=== PATIENT | male | born 1950 | race Caucasian/White ===

== ENCOUNTER 2018-04-19 12:34 | Inpatient (IN) | payer OTHER ==
[~2018-04-19] VITALS: Ht 167.6 cm; Wt 69.0 kg
--- NOTE | 2018-04-19 13:21 | ED GI/GU/ABDOMINAL COMPLAINT ---
History of Present Illness General Chief Complaint: Male Genitourinary Problems Stated Complaint: URINATING BLOOD Source: patient Exam Limitations: no limitations Vital Signs & Intake/Output Vital Signs & Intake/Output Vital Signs Date Time Temp Pulse Resp B/P B/P Pulse O2 O2 Flow FiO2 Mean Ox Delivery Rate 04/19 1708 98.4 94 16 144/79 99 Room Air 04/19 1529 98.2 99 18 169/79 99 Room Air 04/19 1400 109 04/19 1257 97.0 125 20 138/92 98 Room Air Allergies Coded Allergies: tetanus and diphtheria toxoids (SWELLING 04/19/18) Reconcile Medications No Known Home Medications Triage Note: PT TO ED C/O URINATING BLOOD SINCE THIS AM. STATES HE WAS HAVING BURNING WITH URINATION X 1 WEEK. C/O NAUSEA, DENIES VOMITING. Triage Nurses Notes Reviewed? yes Onset: Gradual Duration: getting worse Timing: recent history Severity Numbers: 5 Location: generalized abdomen Radiation: no radiation HPI: Patient is a 67-year-old male with an unremarkable past medical history who is in every day smoker and does drink alcohol on weekends who presents emergency room with concerns of a one week history of dysuria over the past 5 hours patient has had gross glendy hematuria Patient has had intermittent abdominal pain and mild distention patient can tolerate by mouth with no change in symptoms. Patient states that he has not had a bowel movement in 4 days Denies any fever chills chest pain arm pain jaw pain shortness of breath dizziness or testicular pain or swelling denies any night sweats or weight loss (Angelo Chavis) Past History Travel History Traveled to [place] past 21 day No Medical History Any Pertinent Medical History? none Surgical History Surgical History: hernia repair-umbilical Psychosocial History What is your primary language Setswana Tobacco Use: Current Daily Use Daily Tobacco Use Amount/Type: => 5 Cigarettes daily ETOH Use: occasional use Illicit Drug Use: denies illicit drug use Family History Hx Contributory? No (Angelo Chavis) Review of Systems Review of Systems Constitutional: Reports: no symptoms. EENTM: Reports: no symptoms. Respiratory: Reports: no symptoms. Cardiovascular: Reports: no symptoms. GI: Reports: see HPI, abdominal pain. Genitourinary: Reports: see HPI. Musculoskeletal: Reports: no symptoms. Skin: Reports: no symptoms. Neurological/Psychological: Reports: no symptoms. Hematologic/Endocrine: Reports: see HPI, bleeding. Immunologic/Allergic: Reports: no symptoms. All Other Systems: Reviewed and Negative (Angelo Chavis) Physical Exam Physical Exam General Appearance: no apparent distress, alert, comfortable Head: atraumatic Eyes: Bilateral: normal appearance. Ears, Nose, Throat, Mouth: moist mucous membrane Neck: normal inspection Respiratory: normal breath sounds, chest non-tender Cardiovascular: tachycardia Gastrointestinal: distention, tenderness Male Genitals: normal genitalia Extremities: normal range of motion Neurologic/Psych: no motor/sensory deficits, awake, alert Skin: intact, normal color, warm/dry Core Measures ACS in differential dx? No Sepsis Present: No Sepsis Focused Exam Completed? No (Angelo Chavis) Progress Differential Diagnosis: AAA, AMI, appendicitis, biliary colic, bowel obstruction , colon cancer, cholecystitis, diverticulitis, epididymitis, gastritis, hepatitis, hernia, hemorrhoids, ischemic bowel, inflamm bowel dis, [place]-Michelle tear, orchitis, pancreatitis, prostatitis, peptic ulcer, PUD/GERD, perforated viscous, pyelonephritis, SBO, testicular torsion, ureterolithiasis, urinary retention, urethritis, UTI/pyelo Plan of Care: Orders Procedure Date/time Status Patient Data 04/19 1630 Active Add-on Test (ER Only) 04/19 1617 Active Herron, Insertion/Removal/Asses 04/19 1615 Active ED Holding Orders 04/19 1557 Active Admit to inpatient 04/19 1557 Active Code Status 04/19 1557 Active EKG 04/19 1532 Active LACTIC ACID 04/19 1406 Complete Intake & Output 04/19 1354 Active PARTIAL THROMBOPLASTIN TIME 04/19 1339 Complete PROTHROMBIN TIME 04/19 1339 Complete CBC WITHOUT DIFFERENTIAL 04/19 1339 Complete BASIC METABOLIC PANEL 04/19 1339 Complete CULTURE,URINE 04/19 1320 Active URINALYSIS 04/19 1319 Complete Current Medications Sig/Raúl Start time Last Medication Dose Stop Time Status Admin Sodium Chloride 1,000 ML BOLUS ONE 04/19 1715 AC 04/19 (Normal Saline 0.9%) 04/19 1814 1707 Laboratory Tests 04/19/18 1406: Anion Gap 11, Estimated GFR 34 L, BUN/Creatinine Ratio 15.5, Glucose 126 H, Lactic Acid 1.2, Calcium 9.8, PT 10.6, INR 0.97, APTT 29, CBC w Diff MAN DIFF ORDERED, RBC 4.63 L, MCV 90.2, MCH 30.3, MCHC 33.6, RDW 13.4, MPV 8.3, Gran % 86.5 H, Lymphocytes % 5.3 L, Monocytes % 7.6, Eosinophils % 0.4, Basophils % 0.2, Absolute Granulocytes 11.0 H, Segmented Neutrophils 81 H, Band Neutrophils 6 H, Absolute Lymphocytes 0.7 L, Lymphocytes 5 L, Monocytes 8, Absolute Monocytes 1.0 H, Absolute Eosinophils 0.1, Absolute Basophils 0, Platelet Estimate VERIFIED BY SMEAR, Normocytic RBCs VERIFIED, Normochromic RBCs VERIFIED 04/19/18 1332: Urine Color BLDY H, Urine Clarity TURBD H, Urine pH 7.0, Ur Specific [place] 1.020, Urine Protein >=300 H, Urine Ketones NEG, Urine Nitrite NEG, Urine Bilirubin NEG, Urine Urobilinogen 0.2, Ur Leukocyte Esterase MOD H, Ur Microscopic SEDIMENT EXAMINED, Urine RBC PACKD H, Urine WBC > 75 H, Micro UA Comment MORE INFO: H, Urine Hemoglobin LARGE H, Urine Glucose NEG Microbiology 04/19 133 URINE ROUT: Urine Culture - RECD Patient on initial presentation is resting comfortable at bedside has minimal abdominal pain was offered pain medications and declines patient does have gross hematuria Herron catheters placed by nursing staff Is noted to be the nursing staff placed a 3-way catheter in which they noted a approximately 1900 mL of glendy blood that was produced CT scan was resulted showing concerns of obstructive uropathy and UTI Discussed patient with Dr. TURNER 1720- urology is currently placing CBI Diagnostic Imaging: Viewed by Me: CT Scan. Radiology Impression: acute abnormality Initial ED EKG: nsr 93 bpm Comments: PATIENT: MARLENY ANGELO PRESENT AGE: 67 PATIENT ACCOUNT NO: [id number] : 52 LOCATION: [facility] ORDERING PHYSICIAN: Angelo LIPSCOMB SERVICE DATE: 04/19/18 EXAM TYPE: CAT - CT ABD & PELVIS W/O IV CONTRAS EXAMINATION: CT ABDOMEN AND PELVIS WITHOUT CONTRAST CLINICAL INFORMATION: Gross hematuria. Abdominal and back pain. COMPARISON: None. TECHNIQUE: Multidetector volumetric imaging was performed from the superior aspect of the liver through the pubic symphysis. Sagittal and coronal reformatted images were obtained on the technologist workstation. DLP: 280.55 mGy-cm. FINDINGS: LUNG BASES: The visualized lung bases are unremarkable. LIVER, GALLBLADDER, AND BILIARY TREE: The liver is normal in size, shape, and attenuation. No focal hepatic lesion on noncontrast imaging. No biliary ductal dilatation is present. The gallbladder is unremarkable with no evidence of radiopaque gallstones, gallbladder wall thickening, or obvious pericholecystic inflammatory changes. PANCREAS: Unremarkable on noncontrast imaging. SPLEEN: Unremarkable. ADRENAL GLANDS: Right adrenal gland normal. Left adrenal gland diffusely mildly hypertrophied. No discrete mass. KIDNEYS AND URETERS: There is severe left-sided and moderate right-sided hydronephrosis is seen with marked cystic enlargement of the renal pelvises. The right renal pelvis measures approximately 8.0 x 6.0 x 6.0 cm in size. The left renal pelvis measures 11.8 x 9.8 x 10.7 cm. Findings are consistent with bilateral high-grade UPJ obstruction. There is prominent perinephric and periureteral the pelvic fat stranding seen on the left side and only minimal perinephric fat stranding seen on the right side. The ureters bilaterally are decompressed and poorly seen. No definite ureteral calculi noted. BLADDER: Herron catheter is seen within the bladder with small locules of air seen within the bladder lumen. The bladder is markedly abnormal, appearing diffusely thick-walled, especially along the posterior superior margin of the bladder. The bladder wall posteriorly measures up to 2.8 cm in thickness and overall there is mild hyperenhancement of the wall noted. PELVIC VISCERA: Prostate gland demonstrates coarse central gland calcifications and is otherwise grossly unremarkable. Seminal vesicles bilaterally are symmetric. GASTROINTESTINAL TRACT: The small and large bowel are unremarkable. The appendix is unremarkable. ABDOMINAL WALL: No significant hernia is appreciated. LYMPH NODES, VASCULAR: Abdominal aorta is normal in caliber. There is moderate atherosclerotic calcification of the proximal and mid aorta and severe calcification of the distal aorta. No significant pelvic adenopathy or free fluid is seen. OSSEOUS STRUCTURES: There are transpedicular lucencies seen at the L5-S1 level with prior laminectomy defect. No hardware remains in place. Moderate disc space narrowing is noted at L4-L5 and L5-S1. Remainder of disc space height relatively well-maintained. Mild vertebral spondylosis noted throughout the thoracolumbar spine. Partial fusion across the posterior elements in the mid and lower lumbar spine noted. IMPRESSION: 1. Severe left-sided and moderate right-sided hydronephrosis is seen due to high-grade UPJ obstructions bilaterally. Ureters bilaterally are decompressed and unremarkable to the extent seen. 2. Markedly abnormal appearance of the bladder with diffuse wall thickening and hyperenhancement seen. Findings are most likely related to a diffuse cystitis. Differential would also include diffuse bladder wall hypertrophy due to neurogenic bladder/bladder outlet obstruction versus diffuse infiltrative neoplasia. Consider cystoscopic assessment. 3. Diffuse hypertrophy of the left adrenal gland without focal mass. 4. Status post posterior spinal decompression at L4-L5 and L5-S1 with interval removal of the hardware. Alignment remains anatomic. DICTATED BY: Selam Aranda MD DATE/TIME DICTATED:04/19/181528 STATE DIRECTOR:AMA DATE/TIME TRANSCRIBED:04/19/181528 (Angelo Chavis) Departure Departure Disposition: STILL A PATIENT Condition: Guarded Clinical Impression Primary Impression: Obstructive uropathy Secondary Impressions: CARIN (acute kidney injury), Hematuria, UTI (urinary tract infection) Referrals: Sil Mehta MD (PCP/Family) Departure Forms: Customer Survey General Discharge Information Prescriptions: Current Visit Scripts No Known Home Medications Admission Note Spoke With: Rogelio Aguilar MD Documentation of Exam: Documentation of any treatments & extenuating circumstances including Concerns Regarding Discharge (functional status, medication knowledge or non-compliance, living conditions, etc.) that warrant an admission rather than observation: [ Patient requires urology consultation, IV antibiotics CBI placement possible stenting repeat labs IV fluids] (Angelo Chavis) PA/SOLID DIE CUTTER Co-Sign Statement Statement: ED Attending supervision documentation- [x] I saw and evaluated the patient. I have also reviewed all the pertinent lab results and diagnostic results. I agree with the findings and the plan of care as documented in the PA's/SOLID DIE CUTTER's documentation. [] I have reviewed the ED Record and agree with the PA's/SOLID DIE CUTTER's documentation. [] Additions or exceptions (if any) to the PAs/SOLID DIE CUTTER's note and plan are summarized below: [] (Femi Gutierrez DO) Critical Care Note Critical Care Note Critical Care Time: 75-104 min (Angelo Chavis)
[2018-04-19 14:25] LABS: PT 10.6 SEC (9.4-12.5); PTT 29 SEC (25-37)
[2018-04-19 14:28] LABS: ABSOLUTE BASOPHIL COUNT 0 /CUMM (0.0-0.2); ABSOLUTE EOSINOPHIL COUNT 0.1 /CUMM (0.0-0.7); ABSOLUTE LYMPH COUNT 0.7 /CUMM (1.2-3.4); BASOPHIL % 0.2 % (0.0-2.0); EOSINOPHIL % 0.4 % (0-5); GRANULOCYTE % 86.5 % (42.2-75.2); HEMATOCRIT 41.8 % (42-52); MEAN CORPUSCULAR HGB 30.3 PG (27.0-31.0); MEAN CORPUSCULAR HGB CONC 33.6 G/DL (33.0-37.0); MEAN CORPUSCULAR VOLUME 90.2 FL (80.0-94.0); MEAN PLATELET VOLUME 8.3 FL (7.4-10.4); PLATELET COUNT 199 /CUMM (130-400); RBC DISTRIBUTION WIDTH 13.4 % (11.5-14.5); RED BLOOD CELL CT 4.63 /CUMM (4.70-6.10); WHITE BLOOD CELL COUNT 12.7 /CUMM (4.8-10.8)
--- NOTE | 2018-04-19 15:47 | CT SCAN REPORT ---
EXAMINATION: CT ABDOMEN AND PELVIS WITHOUT CONTRAST CLINICAL INFORMATION: Gross hematuria. Abdominal and back pain. COMPARISON: None. TECHNIQUE: Multidetector volumetric imaging was performed from the superior aspect of the liver through the pubic symphysis. Sagittal and coronal reformatted images were obtained on the technologist workstation. DLP: 280.55 mGy-cm. FINDINGS: LUNG BASES: The visualized lung bases are unremarkable. LIVER, GALLBLADDER, AND BILIARY TREE: The liver is normal in size, shape, and attenuation. No focal hepatic lesion on noncontrast imaging. No biliary ductal dilatation is present. The gallbladder is unremarkable with no evidence of radiopaque gallstones, gallbladder wall thickening, or obvious pericholecystic inflammatory changes. PANCREAS: Unremarkable on noncontrast imaging. SPLEEN: Unremarkable. ADRENAL GLANDS: Right adrenal gland normal. Left adrenal gland diffusely mildly hypertrophied. No discrete mass. KIDNEYS AND URETERS: There is severe left-sided and moderate right-sided hydronephrosis is seen with marked cystic enlargement of the renal pelvises. The right renal pelvis measures approximately 8.0 x 6.0 x 6.0 cm in size. The left renal pelvis measures 11.8 x 9.8 x 10.7 cm. Findings are consistent with bilateral high-grade UPJ obstruction. There is prominent perinephric and periureteral the pelvic fat stranding seen on the left side and only minimal perinephric fat stranding seen on the right side. The ureters bilaterally are decompressed and poorly seen. No definite ureteral calculi noted. BLADDER: Herron catheter is seen within the bladder with small locules of air seen within the bladder lumen. The bladder is markedly abnormal, appearing diffusely thick-walled, especially along the posterior superior margin of the bladder. The bladder wall posteriorly measures up to 2.8 cm in thickness and overall there is mild hyperenhancement of the wall noted. PELVIC VISCERA: Prostate gland demonstrates coarse central gland calcifications and is otherwise grossly unremarkable. Seminal vesicles bilaterally are symmetric. GASTROINTESTINAL TRACT: The small and large bowel are unremarkable. The appendix is unremarkable. ABDOMINAL WALL: No significant hernia is appreciated. LYMPH NODES, VASCULAR: Abdominal aorta is normal in caliber. There is moderate atherosclerotic calcification of the proximal and mid aorta and severe calcification of the distal aorta. No significant pelvic adenopathy or free fluid is seen. OSSEOUS STRUCTURES: There are transpedicular lucencies seen at the L5-S1 level with prior laminectomy defect. No hardware remains in place. Moderate disc space narrowing is noted at L4-L5 and L5-S1. Remainder of disc space height relatively well-maintained. Mild vertebral spondylosis noted throughout the thoracolumbar spine. Partial fusion across the posterior elements in the mid and lower lumbar spine noted. IMPRESSION: 1. Severe left-sided and moderate right-sided hydronephrosis is seen due to high-grade UPJ obstructions bilaterally. Ureters bilaterally are decompressed and unremarkable to the extent seen. 2. Markedly abnormal appearance of the bladder with diffuse wall thickening and hyperenhancement seen. Findings are most likely related to a diffuse cystitis. Differential would also include diffuse bladder wall hypertrophy due to neurogenic bladder/bladder outlet obstruction versus diffuse infiltrative neoplasia. Consider cystoscopic assessment. 3. Diffuse hypertrophy of the left adrenal gland without focal mass. 4. Status post posterior spinal decompression at L4-L5 and L5-S1 with interval removal of the hardware. Alignment remains anatomic.
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
[2018-04-19 19:01] VITALS: BP 138/70
--- NOTE | 2018-04-19 19:18 | Cons- Urology ---
General Information and HPI Consulting Request Date of Consult: 04/19/18 Requested By: Rogelio Aguilar MD Reason for Consult: Gross hematuria, bilateral hydronephrosis, elevated creatinine Source of Information: patient Exam Limitations: no limitations History of Present Illness: This patient developed dyuria about 1 week ago. He presented to the ER today after developing gross hematuria this AM. He was not passing any blood clots. In the ER a hernandez was placed and 1900 cc or grossly bloody urine was obtained. Serum creatinine was 2.0. CT of the abd and pelvis shows bilateral significant hydronephrosis, L>R with non dilated ureters. These findings are most c/w bilateral UPJ obstruction. The bladder was mostly decompressed with a hernandez. The bladder wall was diffusely thickened He has a greater than 50 pack year smoking history. He has not had regular medical care in several years. He is not aware of his baseline renal fxn or any previous renal imaging Allergies/Medications Allergies: Coded Allergies: tetanus and diphtheria toxoids (SWELLING 04/19/18) Home Med List: No Known Home Medications Current Medications: Current Medications Sig/Raúl Start time Last Medication Dose Route Stop Time Status Admin Acetaminophen 650 MG Q6P PRN 04/19 1800 AC PO Ceftriaxone Sodium 0 .STK-MED ONE 04/19 1605 DC .ROUTE Ceftriaxone Sodium 1,000 MG ONCE ONE 04/19 1600 DC 04/19 IV 04/19 1601 1610 Oxycodone HCl 5 MG Q6P PRN 04/19 1800 AC PO Sodium Chloride 1,000 ML BOLUS ONE 04/19 1715 DC 04/19 IV 04/19 1814 1707 Past History Surgical History Pertinent Surgical History: hernia repair-umbilical Psychosocial History ETOH Use: occasional use Illicit Drug Use: denies illicit drug use Exam & Diagnostic Data Vital Signs and I&O Vital Signs Date Time Temp Pulse Resp B/P B/P Pulse O2 O2 Flow FiO2 Mean Ox Delivery Rate 04/19 1901 99.2 91 16 138/70 97 Room Air 04/19 1804 98.3 92 17 151/84 98 Room Air 04/19 1708 98.4 94 16 144/79 99 Room Air 04/19 1529 98.2 99 18 169/79 99 Room Air 04/19 1400 109 04/19 1257 97.0 125 20 138/92 98 Room Air Intake & Output 04/19 1600 04/19 0800 04/19 0000 04/18 1600 04/18 0800 04/18 0000 Intake Total Output Total 1800 Balance -1800 Output, Urine 1800 Patient 170 lb Weight Weight Estimated Measurement Method No acute distress Back: no CVA tenderness Abd: soft and non tender. No masses palpable Genitalia: Normal male. Hernandez in place draining blooky urine PORTER: Enlarged prostate, 40 grams. Firm but non nodular Laboratory Tests 04/19 1406 Chemistry Sodium (137 - 145 mmol/L) 140 Potassium (3.5 - 5.1 mmol/L) 4.4 Chloride (98 - 107 mmol/L) 105 Carbon Dioxide (22 - 30 mmol/L) 24 Anion Gap (5 - 16) 11 BUN (9 - 20 mg/dL) 31 H Creatinine (0.7 - 1.2 mg/dL) 2.0 H Estimated GFR (>60 ml/min) 34 L BUN/Creatinine Ratio (7 - 25 %) 15.5 Glucose (65 - 99 mg/dL) 126 H Lactic Acid (0.7 - 2.1 mmol/L) 1.2 Calcium (8.4 - 10.2 mg/dL) 9.8 Coagulation PT (9.4 - 12.5 SEC) 10.6 INR (0.90 - 1.17) 0.97 APTT (25 - 37 SEC) 29 Hematology CBC w Diff MAN DIFF ORDERED WBC (4.8 - 10.8 /CUMM) 12.7 H RBC (4.70 - 6.10 /CUMM) 4.63 L Hgb (14.0 - 18.0 G/DL) 14.0 Hct (42 - 52 %) 41.8 L MCV (80.0 - 94.0 FL) 90.2 MCH (27.0 - 31.0 PG) 30.3 MCHC (33.0 - 37.0 G/DL) 33.6 RDW (11.5 - 14.5 %) 13.4 Plt Count (130 - 400 /CUMM) 199 MPV (7.4 - 10.4 FL) 8.3 Gran % (42.2 - 75.2 %) 86.5 H Lymphocytes % (20.5 - 51.1 %) 5.3 L Monocytes % (1.7 - 9.3 %) 7.6 Eosinophils % (0 - 5 %) 0.4 Basophils % (0.0 - 2.0 %) 0.2 Absolute Granulocytes (1.4 - 6.5 /CUMM) 11.0 H Segmented Neutrophils (42.2 - 75.2 %) 81 H Band Neutrophils (0.0 - 5.0 %) 6 H Absolute Lymphocytes (1.2 - 3.4 /CUMM) 0.7 L Lymphocytes (20.5 - 51.1 %) 5 L Monocytes (1.7 - 9.3 %) 8 Absolute Monocytes (0.10 - 0.60 /CUMM) 1.0 H Absolute Eosinophils (0.0 - 0.7 /CUMM) 0.1 Absolute Basophils (0.0 - 0.2 /CUMM) 0 Platelet Estimate (ADEQUATE) VERIFIED BY SMEAR Normocytic RBCs VERIFIED Normochromic RBCs VERIFIED 04/19 1332 Urines Urine Color (YEL,AMB,STR) BLDY H Urine Clarity (CLEAR) TURBD H Urine pH (5.0 - 8.0) 7.0 Ur Specific [place] (1.001 - 1.035) 1.020 Urine Protein (NEG,<30 MG/DL) >=300 H Urine Ketones (NEG) NEG Urine Nitrite (NEG) NEG Urine Bilirubin (NEG) NEG Urine Urobilinogen (0.1 - 1.0 EU/dl) 0.2 Ur Leukocyte Esterase (NEG) MOD H Ur Microscopic SEDIMENT EXAMINED Urine RBC (0 - 5 /HPF) PACKD H Urine WBC (0 - 2 /HPF) > 75 H Micro UA Comment MORE INFO: H Urine Hemoglobin (NEG) LARGE H Urine Glucose (N MG/DL) NEG Assessment/Plan Assessment/Plan Imp: 1. Gross hematuria. Likely due to UTI and or bladder malignancy(given heavy tobacco hx) 2. Bilateral hydronephrosis likely due to chronic UPJ obstruction 3. Renal insufficiency. Likely multifactorial 4. Probable UTI Plan: 1. Bladder manually irrigated and no clots obtained 2. CBI started and would continue CBI 3. Manually irrigate hernandez as needed 4. Will need cystoscopy. Would prefer to wait if possible until UTI is treated. May attempt to place ureteral stents at time of cysto 5. Will address bilateral hydro once lower urinary tract evaluation is complete 6. Agree with ceftriaxone 7. f/u urine culture and adjust abx accordingly Consult Acknowledgment - Thank you for your consult request.
[2018-04-19 21:51] VITALS: BP 124/70
[2018-04-20 06:00] VITALS: BP 95/64
--- NOTE | 2018-04-20 06:05 | Admission Certification ---
Admission Certification Certification Statement - As attending physician, I certify that at the time of - admission, based on clinical presentation, severity of - symptoms, need for further diagnostic testing and - therapeutic interventions, and risk of adverse outcomes - without in-hospital treatment, in my clinical assessment, - this patient requires an acute hospital stay for a minimum - of two nights or longer. I have also considered psychsocial - factors such as support system, advanced age, financial - issues, cognitive issues, and failed out-patient treatments, - past re-admission history, safety of patient, and lack of - compliance as applicable. Specific rationale supporting this admission is: The patient presents with gross hematuria, outflow tract obstruction and renal failure (Cr 2.0), bilateral UPJ obstructions with UTI. Needs admission for continuous bladder irrigation, monitor of bleed, IV antibiotics, Urology evaluation and cystoscopy- ? stent placement. Close follow-up of renal function.
--- NOTE | 2018-04-20 07:13 | PN- Housestaff ---
Arnulfo Morgan 04/20/18 0712: Subjective Follow-up For: Gross hematuria, CARIN Subjective: Examined at bedside. Patient states that he does not have any pain currently. Patient states that he still has some distention to the belly. Patient denies any urinary symptoms overnight. Herron in place, draining gross hematuria. Denies fever/chills/night sweats/chest pain/abdominal pain/lower extremity edema Review of Systems Constitutional: Reports: see HPI. Objective Last 24 Hrs of Vital Signs/I&O Vital Signs Date Time Temp Pulse Resp B/P B/P Pulse O2 O2 Flow FiO2 Mean Ox Delivery Rate 04/20 0600 98.3 87 20 95/64 97 Room Air 04/19 2151 99.6 83 16 124/70 96 Room Air 04/19 1901 99.2 91 16 138/70 97 Room Air 04/19 1804 98.3 92 17 151/84 98 Room Air 04/19 1708 98.4 94 16 144/79 99 Room Air 04/19 1529 98.2 99 18 169/79 99 Room Air 04/19 1400 109 04/19 1257 97.0 125 20 138/92 98 Room Air Intake & Output 04/20 1600 04/20 0800 04/20 0000 Intake Total 10 480 Output Total 2300 Balance -2290 480 Intake, IV 10 Intake, Oral 0 480 Number 0 Bowel Movements Output, Urine 2300 Patient 167 lb Weight Weight Bed scale Measurement Method Physical Exam General Appearance: Alert, Oriented X3, Cooperative, No Acute Distress Skin: No Rashes Skin Temp/Moisture Exam: Warm/Dry Cardiovascular: Regular Rate, Normal S1, Normal S2 Lungs: Clear to Auscultation, Normal Air Movement Abdomen: Soft, No Tenderness, no suprapubic tenderness/no CVA tenderness Neurological: Sensation Intact Extremities: No Edema Vascular: Normal Pulses Current Medications: Current Medications Sig/Raúl Start time Last Medication Dose Route Stop Time Status Admin Acetaminophen 650 MG Q6P PRN 04/19 1800 AC PO Ceftriaxone Sodium 1,000 MG 1600 04/20 1600 AC IV Ceftriaxone Sodium 0 .STK-MED ONE 04/19 1605 DC .ROUTE Ceftriaxone Sodium 1,000 MG ONCE ONE 04/19 1600 DC 04/19 IV 04/19 1601 1610 Oxycodone HCl 5 MG Q6P PRN 04/19 1800 AC 04/20 PO 0641 Sodium Chloride 1,000 ML BOLUS ONE 04/19 1715 DC 04/19 IV 04/19 1814 1707 Last 24 Hrs of Lab/Jimy Results Last 24 Hrs of Labs/Mics: Laboratory Tests 04/20/18 0709: Sodium Pending, Potassium Pending, Chloride Pending, Carbon Dioxide Pending, Anion Gap Pending, BUN Pending, Creatinine Pending, BUN/Creatinine Ratio Pending , CBC w Diff Pending, WBC Pending, RBC Pending, Hgb Pending, Hct Pending, MCV Pending, MCH Pending, MCHC Pending, RDW Pending, Plt Count Pending, MPV Pending 04/19/18 1406: Anion Gap 11, Estimated GFR 34 L, BUN/Creatinine Ratio 15.5, Glucose 126 H, Lactic Acid 1.2, Calcium 9.8, PT 10.6, INR 0.97, APTT 29, CBC w Diff MAN DIFF ORDERED, RBC 4.63 L, MCV 90.2, MCH 30.3, MCHC 33.6, RDW 13.4, MPV 8.3, Gran % 86.5 H, Lymphocytes % 5.3 L, Monocytes % 7.6, Eosinophils % 0.4, Basophils % 0.2, Absolute Granulocytes 11.0 H, Segmented Neutrophils 81 H, Band Neutrophils 6 H, Absolute Lymphocytes 0.7 L, Lymphocytes 5 L, Monocytes 8, Absolute Monocytes 1.0 H, Absolute Eosinophils 0.1, Absolute Basophils 0, Platelet Estimate VERIFIED BY SMEAR, Normocytic RBCs VERIFIED, Normochromic RBCs VERIFIED 04/19/18 1332: Urine Color BLDY H, Urine Clarity TURBD H, Urine pH 7.0, Ur Specific [place] 1.020, Urine Protein >=300 H, Urine Ketones NEG, Urine Nitrite NEG, Urine Bilirubin NEG, Urine Urobilinogen 0.2, Ur Leukocyte Esterase MOD H, Ur Microscopic SEDIMENT EXAMINED, Urine RBC PACKD H, Urine WBC > 75 H, Micro UA Comment MORE INFO: H, Urine Hemoglobin LARGE H, Urine Glucose NEG Microbiology 04/19 1332 URINE ROUT: Urine Culture - RECD Assessment/Plan Assessment: This is a 67M with poor medical follow-up who does not a medical history, 50+ pack year smoking history, presents with a one week history of dysuria, abdominal discomfort, and five hours of hematuria, admitted for gross hematuria Problem List 1. Gross Hematuria 2. Post-renal CARIN (creatinine 2.0) 3. UTI with Dysuria 4. Leukocytosis 5. HTN 6. Poor Medical Follow-up 7. Self Pay #Gross Hematuria -Serial CBC -Continuous bladder irrigation -Urology consult- spoke with Dr. Santos, will head to OR today for cysto #Post-renal CARIN -Monitor BEP -IVF -Encourage Hydration -Herron catheter in place, drained 1900mL of fluid, will monitor I/O #UTI with Dysuria -On Ceftriaxone, will monitor CBC #Leukocytosis -Likely related to UTI, will get am CBC and monitor #HTN -No LENNOX/ARB, will consider Amlodipine or Doxazosin if continues to be hypertensive #Poor Medical Follow Up -Will establish a PCP for patient that is closer to patients house if patient is willing #Self Pay -Will consult with case management about possible HUSKY Problem List: 1. CARIN (acute kidney injury) 2. Hematuria 3. UTI (urinary tract infection) Pain Ratin Pain Location: suprapubic Pain Goal: Pain 7 or less Pain Plan: pathway Tomorrow's Labs & Rationales: cbc monitor hemoglobin Vladislav Hassan 04/20/18 1119: Attending MD Review Statement Attending Statement Attending MD Statement: examined this patient, discuss w/resident/PA/FINANCIAL COMPLIANCE MANAGER, agreed w/resident/PA/FINANCIAL COMPLIANCE MANAGER, discussed with family, reviewed EMR data (avail), discussed with nursing, discussed with case mgmt, reviewed images, amended to note Attending Assessment/Plan: Pateint went for cystoscopy and evacuated large blood clot. Findings on cysto for cystitis. Continue abx and follow urine culture. Plan for CBI as per urology. Monitor cbc . Transfuse if hb <8. Continue current care
--- NOTE | 2018-04-20 08:02 | PN- Urology ---
Subjective Subjective: Some mild lower abd discomfort. No acute distress Nurses had to irrigate hernandez for clots during the night in spite of CBI Objective Vital Signs and I&Os Vital Signs Date Time Temp Pulse Resp B/P B/P Pulse O2 O2 Flow FiO2 Mean Ox Delivery Rate 04/19 2151 99.6 83 16 124/70 96 Room Air 04/19 1901 99.2 91 16 138/70 97 Room Air 04/19 1804 98.3 92 17 151/84 98 Room Air 04/19 1708 98.4 94 16 144/79 99 Room Air 04/19 1529 98.2 99 18 169/79 99 Room Air 04/19 1400 109 04/19 1257 97.0 125 20 138/92 98 Room Air Intake & Output 04/20 0800 04/20 0000 04/19 1600 04/19 0800 04/19 0000 04/18 1600 Intake Total 10 480 Output Total 2300 1800 Balance -2290 480 -1800 Intake, IV 10 Intake, Oral 0 480 Number 0 Bowel Movements Output, Urine 2300 1800 Patient 167 lb 170 lb Weight Weight Bed scale Estimated Measurement Method Abd: soft. No significant tenderness Genitalia: 3-way hernandez in place. CBI running wide open and urine still quite bloody Laboratory Tests 04/20 04/19 0709 1406 Chemistry Sodium (137 - 145 mmol/L) Pending 140 Potassium (3.5 - 5.1 mmol/L) Pending 4.4 Chloride (98 - 107 mmol/L) Pending 105 Carbon Dioxide (22 - 30 mmol/L) Pending 24 Anion Gap (5 - 16) Pending 11 BUN (9 - 20 mg/dL) Pending 31 H Creatinine (0.7 - 1.2 mg/dL) Pending 2.0 H Estimated GFR (>60 ml/min) 34 L BUN/Creatinine Ratio (7 - 25 %) Pending 15.5 Glucose (65 - 99 mg/dL) 126 H Lactic Acid (0.7 - 2.1 mmol/L) 1.2 Calcium (8.4 - 10.2 mg/dL) 9.8 Coagulation PT (9.4 - 12.5 SEC) 10.6 INR (0.90 - 1.17) 0.97 APTT (25 - 37 SEC) 29 Hematology CBC w Diff Pending MAN DIFF ORDERED WBC (4.8 - 10.8 /CUMM) Pending 12.7 H RBC (4.70 - 6.10 /CUMM) Pending 4.63 L Hgb (14.0 - 18.0 G/DL) Pending 14.0 Hct (42 - 52 %) Pending 41.8 L MCV (80.0 - 94.0 FL) Pending 90.2 MCH (27.0 - 31.0 PG) Pending 30.3 MCHC (33.0 - 37.0 G/DL) Pending 33.6 RDW (11.5 - 14.5 %) Pending 13.4 Plt Count (130 - 400 /CUMM) Pending 199 MPV (7.4 - 10.4 FL) Pending 8.3 Gran % (42.2 - 75.2 %) 86.5 H Lymphocytes % (20.5 - 51.1 %) 5.3 L Monocytes % (1.7 - 9.3 %) 7.6 Eosinophils % (0 - 5 %) 0.4 Basophils % (0.0 - 2.0 %) 0.2 Absolute Granulocytes (1.4 - 6.5 /CUMM) 11.0 H Segmented Neutrophils (42.2 - 75.2 %) 81 H Band Neutrophils (0.0 - 5.0 %) 6 H Absolute Lymphocytes (1.2 - 3.4 /CUMM) 0.7 L Lymphocytes (20.5 - 51.1 %) 5 L Monocytes (1.7 - 9.3 %) 8 Absolute Monocytes (0.10 - 0.60 /CUMM) 1.0 H Absolute Eosinophils (0.0 - 0.7 /CUMM) 0.1 Absolute Basophils (0.0 - 0.2 /CUMM) 0 Platelet Estimate (ADEQUATE) VERIFIED BY SMEAR Normocytic RBCs VERIFIED Normochromic RBCs VERIFIED 04/19 1332 Urines Urine Color (YEL,AMB,STR) BLDY H Urine Clarity (CLEAR) TURBD H Urine pH (5.0 - 8.0) 7.0 Ur Specific [place] (1.001 - 1.035) 1.020 Urine Protein (NEG,<30 MG/DL) >=300 H Urine Ketones (NEG) NEG Urine Nitrite (NEG) NEG Urine Bilirubin (NEG) NEG Urine Urobilinogen (0.1 - 1.0 EU/dl) 0.2 Ur Leukocyte Esterase (NEG) MOD H Ur Microscopic SEDIMENT EXAMINED Urine RBC (0 - 5 /HPF) PACKD H Urine WBC (0 - 2 /HPF) > 75 H Micro UA Comment MORE INFO: H Urine Hemoglobin (NEG) LARGE H Urine Glucose (N MG/DL) NEG Assessment/Plan Assessment/Plan Imp: 1. significant gross hematuria. ? infection vs bladder tumor 2. Chronic bilateral UPJ obstruction Plan: 1. In view of significant gross hematuria will schedule urgent cystoscopy today with clot evacuation and attempted fulgeration of bleeding or resection of bladder tumor if present 2. Keep npo 3. continue CBI for now
[2018-04-20 08:41] LABS: ABSOLUTE BASOPHIL COUNT 0 /CUMM (0.0-0.2); ABSOLUTE EOSINOPHIL COUNT 0 /CUMM (0.0-0.7); ABSOLUTE GRANULOCYTE CT 9.4 /CUMM (1.4-6.5); ABSOLUTE LYMPH COUNT 0.8 /CUMM (1.2-3.4); ABSOLUTE MONOCYTE COUNT 1.1 /CUMM (0.10-0.60); BASOPHIL % 0.1 % (0.0-2.0); EOSINOPHIL % 0.4 % (0-5); GRANULOCYTE % 82.8 % (42.2-75.2); MEAN CORPUSCULAR HGB 30.8 PG (27.0-31.0); MEAN CORPUSCULAR HGB CONC 33.9 G/DL (33.0-37.0); MEAN CORPUSCULAR VOLUME 90.8 FL (80.0-94.0); MEAN PLATELET VOLUME 9.2 FL (7.4-10.4); PLATELET COUNT 176 /CUMM (130-400); RBC DISTRIBUTION WIDTH 13.2 % (11.5-14.5); RED BLOOD CELL CT 4.04 /CUMM (4.70-6.10); WHITE BLOOD CELL COUNT 11.3 /CUMM (4.8-10.8)
[2018-04-20 08:59] LABS: HEMATOCRIT 36.7 % (42-52)
--- NOTE | 2018-04-20 10:13 | Operative Report ---
Operative/Inv Procedure Report Surgery Date: 04/20/18 Name of Procedure: Cystoscopy, clot evacuation and fulgeration of bleeders Pre-Operative Diagnosis: Gross hematuria and urinary clot retention Post-Operative Diagnosis: same Estimated Blood Loss: 50ml to 100ml Surgeon/Book Sorter: Danielle Anesthesia: laryngeal mask airway Drains: 22 fr 3-way hematuria catheter Specimens: none Complications: none Condition: stable Operative Indication: Gross hematuria with urinary clot retention Operative/Procedure Note Note: The patient was taken to the operating room identified. He was placed in supine position on the operating table. A timeout was executed appropriately with the patient awake. Gen. anesthesia was induced via LMA. He was then placed in the dorsal lithotomy position and prepped and draped in usual fashion for cystoscopy. A surgical pause was executed appropriately. The 22 Dominican cystoscope sheath was placed into the bladder under direct vision using the 30 lens. Anterior urethra was normal. Prostatic urethra showed partial obstruction was 3 cm in length. It did not appear to be bleeding. Upon entering the bladder large amount of blood clot was noted. The bladder was left full and the cystoscope removed. The urethral meatus was dilated with [place] sounds to 30 Dominican. The 26 Dominican resectoscope sheath was placed into the bladder using the obturator. Using the [place] evacuator all blood clots were irrigated from the bladder. This was fairly extensive procedure and about a unit and a half of blood clot was obtained. Following this the bladder was inspected using the resectoscope. There was diffuse erythema of the bladder with several bleeding areas. These were fulgurated. There was no evidence of papillary bladder tumor. The bladder was heavily trabeculated. Neither ureteral ureteral orifice could be identified due to the heavy bladder trabeculation. At this point no significant bleeding was noted. The bladder was left full and the resectoscope removed. 22 Dominican three-way hematuria catheter was placed to continuous bladder irrigation begun with clear drainage. Patient tolerated the procedure well and as completion was taken recovery room in stable condition. Tapillary bladder tumor. The bladder was heavily trabeculated. Neither ureteral ureteral orifice could be identified due to the heavy bladder trabeculation. At this point no significant bleeding was noted. The bladder was left full and the resectoscope removed. A 22 Dominican three-way hematuria catheter was placed to continuous bladder irrigation begun with clear drainage. Patient tolerated the procedure well and there is complete and was taken to recovery room in stable condition. Findings: Large amount of blood clot in bladder. Diffusely inflammed bladder mucosa c/w cystitis. Heavily trabeculated bladder. Partially obstructing prostate Discharge Disposition: PACU
[2018-04-20 14:36] VITALS: BP 122/62
[2018-04-20 22:32] VITALS: BP 151/94
--- NOTE | 2018-04-21 07:13 | PN- Housestaff ---
See Addendum Subjective Follow-up For: Gross Hematuria, UTI Subjective: Patient seen and examined at bedside. Pt denies complaints. States he is happy to eat after being n.p.o. for surgery. Patient was informed that proper note there was no tumor, patient very happy about news. Patient was agreeable to the plan to continue IV antibiotics. Pt denies fevers/chills/night sweats/chest pain /abdominal pain/urinary symptoms/lower extremity edema. No acute events overnight Review of Systems Constitutional: Reports: see HPI. Objective Last 24 Hrs of Vital Signs/I&O Vital Signs Date Time Temp Pulse Resp B/P B/P Pulse O2 O2 Flow FiO2 Mean Ox Delivery Rate 04/21 0716 99.8 76 18 100/62 96 04/20 2232 97.5 109 18 151/94 97 Room Air 04/20 1436 98.8 82 18 122/62 96 Room Air Intake & Output 04/21 1600 04/21 0800 04/21 0000 Intake Total 960 700 Output Total 1300 Balance -340 700 Intake, IV 600 300 Intake, Oral 360 400 Number 1 Bowel Movements Output, Urine 1300 Patient 165 lb Weight Physical Exam General Appearance: Alert, Oriented X3, Cooperative, No Acute Distress Skin: No Rashes Skin Temp/Moisture Exam: Warm/Dry Cardiovascular: Regular Rate, Normal S1, Normal S2 Lungs: Clear to Auscultation, Normal Air Movement Abdomen: Soft, No Tenderness Neurological: Strength at 5/5 X4 Ext, Sensation Intact Extremities: No Edema Reproductive (MALE) Normal male genitalia, hernandez in place, no hematuria noted in bag Current Medications: Current Medications Sig/Raúl Start time Last Medication Dose Route Stop Time Status Admin Acetaminophen 650 MG Q6P PRN 04/20 1030 AC PO Acetaminophen 650 MG Q6P PRN 04/19 1800 DC PO Bisacodyl 10 MG ONCE ONE 04/20 1900 DC 04/20 VA 04/20 1901 1956 Ceftriaxone Sodium 1,000 MG 1600 04/20 1600 DC IV Ceftriaxone Sodium 1,000 MG 1600 04/20 1600 DC IV Ceftriaxone Sodium 1,000 MG 1600 04/20 1600 AC 04/20 IV 1654 Dextrose/Sodium 1,000 ML Q13H ONE 04/20 1100 DC 04/20 Chloride IV 04/21 0019 1253 Dextrose/Sodium 1,000 ML BOLUS ONE 04/20 1045 DC Chloride IV 04/21 0004 Ondansetron HCl 4 MG Q6P PRN 04/20 1900 AC 04/20 IV 1904 Oxycodone HCl 5 MG Q6P PRN 04/20 1045 AC PO Oxycodone HCl 5 MG Q6P PRN 04/20 1030 DC PO Oxycodone HCl 5 MG Q6P PRN 04/19 1800 DC 04/20 PO 0641 Patient Medication 1 ED ONE ONE 04/20 1800 DC Teaching ED 04/20 1801 Sodium Chloride 1,000 ML Q13H 04/20 1600 AC 04/21 IV 04/21 1759 0516 Last 24 Hrs of Lab/Jimy Results Last 24 Hrs of Labs/Mics: Laboratory Tests 04/21/18 0642: Anion Gap 8, Estimated GFR 38 L, BUN/Creatinine Ratio 13.9, CBC w Diff NO MAN DIFF REQ, RBC 3.37 L, MCV 91.5, MCH 31.1 H, MCHC 33.9, RDW 13.3, MPV 9.0, Gran % 75.0, Lymphocytes % 14.3 L, Monocytes % 8.3, Eosinophils % 2.2, Basophils % 0.2, Absolute Granulocytes 6.8 H, Absolute Lymphocytes 1.3, Absolute Monocytes 0.7 H, Absolute Eosinophils 0.2, Absolute Basophils 0 Assessment/Plan Assessment: This is a 67M with poor medical follow-up who does not a medical history, 50+ pack year smoking history, presents with a one week history of dysuria, abdominal discomfort, and five hours of hematuria, admitted for gross hematuria Problem List 1. Gross Hematuria 2. Post-renal CARIN (creatinine 2.0) 3. UTI with Dysuria 4. Leukocytosis 5. HTN 6. Poor Medical Follow-up 7. Self Pay #Gross Hematuria - resolving -Serial CBC - Hb from 12.5 --> 10.5 today. Per operative note there was 1.5U worth of clot washed out on cystoscopy. Will obtain one more tomorrow morning. -Discontinue CBI -Urology consult appreciated- went to OR yesterday for Cysto. Per note, no tumor identified. Ureters were unable to be visualized 2/2 inflamm, no stenting done. Will likely have to f/u outpt for management of bilateral UPJ obstruction. Per reccs, CBI to be d/gloria, and pt to have hernandez catheter removed tomorrow if urine is clear. Will have PVR by bladder scan q shift and str cath if >500cc. Potentially discharge with self intermittent cath regimen. #Post-renal CARIN -Creatinine up to 1.8 from 1.6 yesterday. Down from admission which was 2.0 -IVF -Encourage Hydration -Hernandez catheter in place, CBI d/gloria. #UTI with Dysuria - resolving -On Ceftriaxone, day 3. Leukocytosis resolved. Micro growing >100,000 G+ Cocci, sensitivities to follow #Leukocytosis - RESOLVED -12.7-->11.3-->9.0 today. #HTN -No LENNOX/ARB, will consider Amlodipine or Doxazosin if continues to be hypertensive. Pressures up to 150s/94s overnight. Will reassess today. #Poor Medical Follow Up -Will establish a PCP for patient that is closer to patients house if patient is willing. Spoke with patient today, who is not averse to this. Will clarify upon discharge. #Self Pay -Will consult with case management about possible HUSKY Problem List: 1. CARIN (acute kidney injury) 2. Hematuria 3. UTI (urinary tract infection) Pain Ratin Pain Location: na Pain Goal: Pain 4 or less Pain Plan: Pathway Tomorrow's Labs & Rationales: CBC, BEP
--- NOTE | 2018-04-21 07:15 | PN- Urology ---
Subjective Subjective: Comfortable Objective Vital Signs and I&Os Vital Signs Date Time Temp Pulse Resp B/P B/P Pulse O2 O2 Flow FiO2 Mean Ox Delivery Rate 04/20 2232 97.5 109 18 151/94 97 Room Air 04/20 1436 98.8 82 18 122/62 96 Room Air Intake & Output 04/21 0800 04/21 0000 04/20 1600 04/20 0800 04/20 0000 04/19 1600 Intake Total 960 700 900 10 480 Output Total 1300 1200 2300 1800 Balance -340 700 -300 -2290 480 -1800 Intake, IV 600 300 450 10 Intake, Oral 360 400 450 0 480 Number 1 0 0 Bowel Movements Output, Urine 1300 1200 2300 1800 Patient 167 lb 170 lb Weight Weight Bed scale Estimated Measurement Method Abd: soft and nontender Genitalia: 3-way hernandez in place. CBI running at slow rate with crystal clear drainage Urine culture growing gram pos cocci Laboratory Tests 04/21 0642 Chemistry Sodium Pending Potassium Pending Chloride Pending Carbon Dioxide Pending Anion Gap Pending BUN Pending Creatinine Pending BUN/Creatinine Ratio Pending Hematology CBC w Diff Pending WBC Pending RBC Pending Hgb Pending Hct Pending MCV Pending MCH Pending MCHC Pending RDW Pending Plt Count Pending MPV Pending Assessment/Plan Assessment/Plan Imp: 1. s/p cysto, clot evacuation and fulgeration of bleeders for gross hematuria 2. UTI with gram pos cocci 3. Gross hematuria resolved. Likely infection related 4. Urinary retention on admission, ? due to clots in bladder vs poor bladder tone vs prostatic obstruction 5. Bilateral hydronephrosis is chronic due to bilateral UPJ obstruction Plan: 1. Stop CBI today. Continue hernandez 2. Tomorrow AM if urine is clear remove hernandez. Check pvr by bladder scan q shift and str cath if greater than 500 cc 3. If patient requires str cath would have nurses teach him self intermittent cath to be discharged doing that 4. f/u urine culture sensitivities and change to po abx accordingly
[2018-04-21 07:16] VITALS: BP 100/62
[2018-04-21 07:50] LABS: ABSOLUTE BASOPHIL COUNT 0 /CUMM (0.0-0.2); ABSOLUTE EOSINOPHIL COUNT 0.2 /CUMM (0.0-0.7); ABSOLUTE GRANULOCYTE CT 6.8 /CUMM (1.4-6.5); ABSOLUTE LYMPH COUNT 1.3 /CUMM (1.2-3.4); ABSOLUTE MONOCYTE COUNT 0.7 /CUMM (0.10-0.60); BASOPHIL % 0.2 % (0.0-2.0)
[2018-04-21 08:12] LABS: EOSINOPHIL % 2.2 % (0-5); MEAN CORPUSCULAR HGB 31.1 PG (27.0-31.0); MEAN CORPUSCULAR HGB CONC 33.9 G/DL (33.0-37.0); MEAN CORPUSCULAR VOLUME 91.5 FL (80.0-94.0); PLATELET COUNT 155 /CUMM (130-400); RBC DISTRIBUTION WIDTH 13.3 % (11.5-14.5); RED BLOOD CELL CT 3.37 /CUMM (4.70-6.10)
[2018-04-21 08:19] LABS: HEMATOCRIT 30.8 % (42-52)
[2018-04-21 15:10] VITALS: BP 125/69
--- NOTE | 2018-04-21 15:26 | Patient Discharge Instructions ---
Discharge Instructions General Discharge Information You were seen/treated for: GROSS HEMATURIA, UTI You had these procedures: CYSTOSCOPY Watch for these problems: blood in the urine, pain with urination, leaking, discharge Special Instructions: - Please maintain your hernandez in place for urine output until seen by your urologist Dr. Andujar - Please follow up with your Urologist within 1 weeks of discharge. - Please follow up with your primary care physician within 1-2 weeks of discharge. Inform your primary care physician of this admission to [facility]. - Continue your current medications per discharge instructions. - Please watch for these problems: Fever, Chills, Nausea, Vomiting, Shortness of Breath, Productive Cough, Chest Pain/Discomfort, Abdominal Pain, Active Bleeding or Bloody urine/stool. Diet Continue normal diet: Yes Acute Coronary Syndrome Inclusion Criteria At DC or during hospital stay patient has or had the following: ACS DIAGNOSIS No Discharge Core Measures Meds if any: Prescribed or Continued at Discharge Meds if any: NOT Prescribed or Continued at Discharge Congestive Heart Failure Inclusion Criteria At DC or during hospital stay patient has or had the following: CHF DIAGNOSIS No Discharge Core Measures Meds if any: Prescribed or Continued at Discharge Meds if any: NOT Prescribed or Continued at Discharge Cerebrovascular accident Inclusion Criteria At DC or during hospital stay patient has or had the following: CVA/TIA Diagnosis No Discharge Core Measures Meds if any: Prescribed or Continued at Discharge Meds if any: NOT Prescribed or Continued at Discharge Venous thromboembolism Inclusion Criteria VTE Diagnosis No VTE Type NONE VTE Confirmed by (Test) NONE Discharge Core Measures - Per Current guidelines, there needs to be overlap - treatment for the first 5 days of Warfarin therapy. - If discharged on Warfarin prior to 5 days of - overlap therapy, the patient will need to be - assessed for post discharge needs including - *Post discharge parental anticoagulation - *Warfarin and/or parental anticoagulation education - *Follow up date to check INR post discharge At least 5 days overlap therapy as Inpatient No Meds if any: Prescribed or Continued at Discharge Note: Overlap Therapy is Warfarin and Anticoagulant Meds if any: NOT Prescribed or Continued at Discharge
--- NOTE | 2018-04-21 15:44 | Discharge Summary ---
See Addendum Visit Information Visit Dates Admission Date: 04/19/18 Discharge Date: 04/24/18 Hospital Course Course Attending Physician: Mo MANZANO,Vladislav Primary Care Physician: Tyson MANZANO,Korey Hospital Course: Mr. Moscoso is a 67yo M w/o significant PMH presented to ER w/ dysuria x 1 week and gross glendy hematuira during the last 5 hours prior to ER admission. During our clinical interaction, patient denied recent travel/sick contacts, fever/lightheadedness/diaphoresis/night sweat/weight change/cough/SOB/Chest Pain /Palpitation/Abdominal pain/bowel movement or urinary abnormality, or other skin /musculoskeletal/neurological/mood disorders, or dietary/appetite change. -Smoking: everyday smoker 50PPY -Alcohol: recreational -Rec Drugs: denied On admission, Vitals: Stable afebrile, tachycardia 125->99, RR 20, BP 1 6 9/79, 95% on room air Physical exam -Gen.: AO x3, cooperative, no distress, -HEENT: NCAT, PERRL, EOMI, anicteric sclera, moist mucous membranes -Neck: Supple, no JVD, trachea midline, mild accessory respiratory muscle use -Cardio: Normal S1/S2 without significant murmurs/gallops/rubs -Pulmonary: grossly normal air movement w/ clear auscultation -Abdomen: Soft, nontender, nondistended, bowel sounds intact. Herron w/ CBI in place. Genital exam unremarkable without penile discharge or active bleeding. No suprapubic discomfort. -Neuro: Awake and alert, cranial nerves II through XII grossly intact -Extremity: Normal pulses/capillary refill, no cyanosis/clubbing/edema -CBC: Mild leukocytosis 12.7, H/H 14/41.8, PLT 199, PT/INR 10.6/0.97, APTT 29 -BMP: Elevated creatinine 2.0 without any baseline urinalysis, lactic acid 1.2 -UA/Microbiology: Bloody urine with pyuria -AB CT: 1. Severe left-sided and moderate right-sided hydronephrosis is seen due to high-grade UPJ obstructions bilaterally. Ureters bilaterally are decompressed and unremarkable to the extent seen. 2. Markedly abnormal appearance of the bladder with diffuse wall thickening and hyperenhancement seen. Findings are most likely related to a diffuse cystitis. Differential would also include diffuse bladder wall hypertrophy due to neurogenic bladder/bladder outlet obstruction versus diffuse infiltrative neoplasia. Consider cystoscopic assessment. 3. Diffuse hypertrophy of the left adrenal gland without focal mass. 4. Status post posterior spinal decompression at L4-L5 and L5-S1 with interval removal of the hardware. Alignment remains anatomic. -EKG: NSR w/o significant ST-T abnormalities. -Last Echo: none in [facility] -Interventions in ER: Ceftriaxone x 1, IV NS x 1 In the emergency department, the inserted catheter, which drained 1900 mL's of gross hematuria. He was maintained on the catheter, and he was admitted to general medicine floor for management of gross hematuria and UTI. He was started on ceftriaxone, completed 5 days of it. He was switched to Bactrim, and then Keflex, and will complete a 10 day course of Keflex outpatient. Additionally, on April 20 he went on to the OR for cystoscopy with Dr. López. There, they washed out 1.5 units of clots, ruled out any bladder cancer, and did not stent the patient as the ureters were not able to be located secondary to gross inflammation consistent with acute on chronic cystitis. He was maintained on a Herron until Tuesday, as he was draining clear liquid, no hematuria. On Tuesday his Herron was removed and he was started on intermittent catheterization regimen. Nurses were instructed to BladderScan every 6 hours and if there is more than 500 cc in the bladder, straight cathing. Throughout the day, he had 1500 cc postvoid residual, 900 cc postvoid residual, 800 cc postvoid residual. On Tuesday, he continued to have high postvoid residuals with a mismatch in what he was taking in. He had 1300 cc of brown urine that was drained in the afternoon, and the urologist covering [place] on the weekend was called. The urologist stated that this is likely due to clot, and no cause for concern. Urologist stated that most likely he will need to be either on intermittent catheterization or on an indwelling Herron to be switched outpatient during follow-up. On Tuesday, Dr. López saw the patient and stated the same. Patient stated his hesitation to do intermittent catheterizations, and so was decided that at 10 AM his Herron would be inserted, and he be discharged on the Herron to follow-up with urologist outpatient for eventual transition to intermittent catheterization. He was also given a referral to Dr. mercedes, as he is no outpatient primary care practitioner that he follows with. He stated that he will follow-up in 1 week with his primary care practitioner, and he will also follow-up with urology in 1 week as well. He will complete his 10 day course of antibiotics on Keflex. He was given strict return precautions, and verbalized understanding of treatment. Allergies: Coded Allergies: tetanus and diphtheria toxoids (SWELLING 04/19/18) Significant Procedures: Surgery Date: 04/20/18 Name of Procedure: Cystoscopy, clot evacuation and fulgeration of bleeders Pre-Operative Diagnosis: Gross hematuria and urinary clot retention Post-Operative Diagnosis: same Estimated Blood Loss: 50ml to 100ml Surgeon/Painter Mirror: Danielle Anesthesia: laryngeal mask airway Drains: 22 fr 3-way hematuria catheter Specimens: none Complications: none Condition: stable Operative Indication: Gross hematuria with urinary clot retention Operative/Procedure Note Note: The patient was taken to the operating room identified. He was placed in supine position on the operating table. A timeout was executed appropriately with the patient awake. Gen. anesthesia was induced via LMA. He was then placed in the dorsal lithotomy position and prepped and draped in usual fashion for cystoscopy. A surgical pause was executed appropriately. The 22 Burmese cystoscope sheath was placed into the bladder under direct vision using the 30 lens. Anterior urethra was normal. Prostatic urethra showed partial obstruction was 3 cm in length. It did not appear to be bleeding. Upon entering the bladder large amount of blood clot was noted. The bladder was left full and the cystoscope removed. The urethral meatus was dilated with [place] sounds to 30 Burmese. The 26 Burmese resectoscope sheath was placed into the bladder using the obturator. Using the Kaylynn evacuator all blood clots were irrigated from the bladder. This was fairly extensive procedure and about a unit and a half of blood clot was obtained. Following this the bladder was inspected using the resectoscope. There was diffuse erythema of the bladder with several bleeding areas. These were fulgurated. There was no evidence of papillary bladder tumor. The bladder was heavily trabeculated. Neither ureteral ureteral orifice could be identified due to the heavy bladder trabeculation. At this point no significant bleeding was noted. The bladder was left full and the resectoscope removed. 22 Burmese three-way hematuria catheter was placed to continuous bladder irrigation begun with clear drainage. Patient tolerated the procedure well and as completion was taken recovery room in stable condition. Tapillary bladder tumor. The bladder was heavily trabeculated. Neither ureteral ureteral orifice could be identified due to the heavy bladder trabeculation. At this point no significant bleeding was noted. The bladder was left full and the resectoscope removed. A 22 Burmese three-way hematuria catheter was placed to continuous bladder irrigation begun with clear drainage. Patient tolerated the procedure well and there is complete and was taken to recovery room in stable condition. Findings: Large amount of blood clot in bladder. Diffusely inflammed bladder mucosa c/w cystitis. Heavily trabeculated bladder. Partially obstructing prostate Discharge Disposition: PACU EXAMINATION: CT ABDOMEN AND PELVIS WITHOUT CONTRAST 04/19/18 CLINICAL INFORMATION: Gross hematuria. Abdominal and back pain. COMPARISON: None. TECHNIQUE: Multidetector volumetric imaging was performed from the superior aspect of the liver through the pubic symphysis. Sagittal and coronal reformatted images were obtained on the technologist workstation. DLP: 280.55 mGy-cm. FINDINGS: LUNG BASES: The visualized lung bases are unremarkable. LIVER, GALLBLADDER, AND BILIARY TREE: The liver is normal in size, shape, and attenuation. No focal hepatic lesion on noncontrast imaging. No biliary ductal dilatation is present. The gallbladder is unremarkable with no evidence of radiopaque gallstones, gallbladder wall thickening, or obvious pericholecystic inflammatory changes. PANCREAS: Unremarkable on noncontrast imaging. SPLEEN: Unremarkable. ADRENAL GLANDS: Right adrenal gland normal. Left adrenal gland diffusely mildly hypertrophied. No discrete mass. KIDNEYS AND URETERS: There is severe left-sided and moderate right-sided hydronephrosis is seen with marked cystic enlargement of the renal pelvises. The right renal pelvis measures approximately 8.0 x 6.0 x 6.0 cm in size. The left renal pelvis measures 11.8 x 9.8 x 10.7 cm. Findings are consistent with bilateral high-grade UPJ obstruction. There is prominent perinephric and periureteral the pelvic fat stranding seen on the left side and only minimal perinephric fat stranding seen on the right side. The ureters bilaterally are decompressed and poorly seen. No definite ureteral calculi noted. BLADDER: Herron catheter is seen within the bladder with small locules of air seen within the bladder lumen. The bladder is markedly abnormal, appearing diffusely thick-walled, especially along the posterior superior margin of the bladder. The bladder wall posteriorly measures up to 2.8 cm in thickness and overall there is mild hyperenhancement of the wall noted. PELVIC VISCERA: Prostate gland demonstrates coarse central gland calcifications and is otherwise grossly unremarkable. Seminal vesicles bilaterally are symmetric. GASTROINTESTINAL TRACT: The small and large bowel are unremarkable. The appendix is unremarkable. ABDOMINAL WALL: No significant hernia is appreciated. LYMPH NODES, VASCULAR: Abdominal aorta is normal in caliber. There is moderate atherosclerotic calcification of the proximal and mid aorta and severe calcification of the distal aorta. No significant pelvic adenopathy or free fluid is seen. OSSEOUS STRUCTURES: There are transpedicular lucencies seen at the L5-S1 level with prior laminectomy defect. No hardware remains in place. Moderate disc space narrowing is noted at L4-L5 and L5-S1. Remainder of disc space height relatively well-maintained. Mild vertebral spondylosis noted throughout the thoracolumbar spine. Partial fusion across the posterior elements in the mid and lower lumbar spine noted. IMPRESSION: 1. Severe left-sided and moderate right-sided hydronephrosis is seen due to high-grade UPJ obstructions bilaterally. Ureters bilaterally are decompressed and unremarkable to the extent seen. 2. Markedly abnormal appearance of the bladder with diffuse wall thickening and hyperenhancement seen. Findings are most likely related to a diffuse cystitis. Differential would also include diffuse bladder wall hypertrophy due to neurogenic bladder/bladder outlet obstruction versus diffuse infiltrative neoplasia. Consider cystoscopic assessment. 3. Diffuse hypertrophy of the left adrenal gland without focal mass. 4. Status post posterior spinal decompression at L4-L5 and L5-S1 with interval removal of the hardware. Alignment remains anatomic. Pertinent Lab Results: WBC 12.7-->11.3-->9.0 on April 21 Disposition Summary Disposition Principal Diagnosis: #Gross hematuria #Complicated UTI #Acute on chronic CARIN-likely secondary to post-renal obstruction #Leukocytosis #Hypertension #Self-pay Additional Diagnosis: As above Discharge Disposition: home health services Discharge Instructions General Discharge Information Code Status: Do Not Resucitate/Intubat Patient's Diet: As tolerated Patient's Activity: As tolerated Follow-Up Instructions/Appts: - Please follow up with your Urologist within 1-2 weeks of discharge. - Please follow up with your primary care physician within 1-2 weeks of discharge. Inform your primary care physician of this [facility]. - Continue your current medications per discharge instructions. - Please watch for these problems: Fever, Chills, Nausea, Vomiting, Shortness of Breath, Productive Cough, Chest Pain/Discomfort, Abdominal Pain, Active Bleeding or Bloody urine/stool. Medications at Discharge Discharge Medications: Start taking the following new medications: Cephalexin (Keflex) 750 MG CAPSULE 1 Capsule ORAL TWICE DAILY Qty = 8 No Refills Instructions: . Comments: LAST GIVEN 04/24/18 @ 4917 Copies To: Tyson MANZANO,Sil; Zenaida MANZANO,Zenaida
[2018-04-21 23:16] VITALS: BP 126/86
[2018-04-22 07:41] VITALS: BP 104/65
--- NOTE | 2018-04-22 08:37 | PN- Housestaff ---
Mynor MANZANO,Savanah 04/22/18 0836: Subjective Follow-up For: Follow-up gross hematuria, bilateral hydronephrosis, elevated creatinine Complaints: no complaints Subjective: Patient is seen and examined at the bedside. He doesn't have any active complaints. Urine in the Herron was clear with many debries. Review of Systems Constitutional: Denies: no symptoms. Objective Last 24 Hrs of Vital Signs/I&O Vital Signs Date Time Temp Pulse Resp B/P B/P Pulse O2 O2 Flow FiO2 Mean Ox Delivery Rate 04/22 0741 97.8 78 20 104/65 97 04/21 2316 98.2 91 17 126/86 96 04/21 1510 98.6 93 20 125/69 98 Room Air Intake & Output 04/22 1600 04/22 0800 04/22 0000 Intake Total 360 780 Output Total 1300 1500 Balance -940 -720 Intake, IV 300 Intake, Oral 360 480 Output, Urine 1300 1500 Patient 68.974 kg Weight Physical Exam General Appearance: Alert, Oriented X3, Cooperative, No Acute Distress Cardiovascular: Normal S1, Normal S2 Lungs: Clear to Auscultation, Normal Air Movement Abdomen: Soft, No Tenderness Current Medications: Current Medications Sig/Raúl Start time Last Medication Dose Route Stop Time Status Admin Acetaminophen 650 MG Q6P PRN 04/20 1030 AC PO Ceftriaxone Sodium 1,000 MG 1600 04/20 1600 AC 04/21 IV 1621 Ondansetron HCl 4 MG Q6P PRN 04/20 1900 AC 04/20 IV 1904 Oxycodone HCl 5 MG Q6P PRN 04/20 1045 AC PO Patient Medication 1 ED ONE ONE 04/21 1600 NE 04/21 Teaching ED 04/21 1601 1623 Sodium Chloride 1,000 ML Q13H 04/20 1600 DC 04/21 IV 04/21 1759 0516 Last 24 Hrs of Lab/Jimy Results Last 24 Hrs of Labs/Mics: Laboratory Tests 04/22/18 0638: Sodium Pending, Potassium Pending, Chloride Pending, Carbon Dioxide Pending, Anion Gap Pending, BUN Pending, Creatinine Pending, BUN/Creatinine Ratio Pending , CBC w Diff NO MAN DIFF REQ, RBC 3.32 L, MCV 91.2, MCH 31.0, MCHC 34.0, RDW 13.2, MPV 8.8, Gran % 74.1, Lymphocytes % 15.2 L, Monocytes % 5.2, Eosinophils % 5.2 H, Basophils % 0.3, Absolute Granulocytes 6.6 H, Absolute Lymphocytes 1.4, Absolute Monocytes 0.5, Absolute Eosinophils 0.5, Absolute Basophils 0 Assessment/Plan Assessment: Patient is a 67-year-old male with history of dysuria since one week, presented with gross hematuria followed by Herron catheterization. CT abdomen and pelvis showed evidence of bilateral significant hydronephrosis. CBI was done. UTI was treated with ceftriaxone. Urine culture grew gram-positive cocci . Sensitivities , result is still pending. Currently, patient is having a clear, urine with some debries. Vital signs-temperature 97.8, pulse rate 78, respiratory 20, blood pressure 104/ 65, SPO2 97% on room air. Blood workup showed-WBC 8.9, hemoglobin 10 point 3, hematocrit 30 point 2, platelet count 179, granulocyte 70 4.1, eosinophils 5.2, serum sodium 142, potassium 4.5, chloride 110, anorexia 23, anion gap 9, BUN 26, creatinine 1.7, GFR 41, PT/INR 10.6/0.97, APTT 29. Assessment and plan - * As per urology, we will remove the Herron catheter and check post void his urine every shift. If postvoid residual urine is more than 500 mL than we will straight cath. If patient needs Straight cath then we will teach him self intermittent catheterization. We will change the antibiotic, according to the culture and sentivity. * We'll follow urology notes an attending note. Problem List: 1. Hematuria 2. CARIN (acute kidney injury) 3. UTI (urinary tract infection) 4. Obstructive uropathy Pain Ratin Pain Location: Lower abdomen Pain Goal: Remain pain free Pain Plan: Pain medication according to pain scale Tomorrow's Labs & Rationales: Not applicable DVT/Prophylaxis: mechanical Shala MANZANO,Amir 04/22/18 1319: Attending MD Review Statement Attending Statement Attending Statement: examined this patient, discuss w/resident/PA/DENTAL CHAIRSIDE ASSISTANT, agreed w/resident/PA/DENTAL CHAIRSIDE ASSISTANT, reviewed EMR data (avail), discussed with nursing Attending Assessment/Plan: Pt was seen and evaluated. Chart reviewed. No further episode of hematuria, Herron has been removed. --check with Urology if OK to d/c home in next 24 hrs --rest of the plan as per resident's note
[2018-04-22 08:41] LABS: ABSOLUTE BASOPHIL COUNT 0 /CUMM (0.0-0.2); ABSOLUTE EOSINOPHIL COUNT 0.5 /CUMM (0.0-0.7); ABSOLUTE GRANULOCYTE CT 6.6 /CUMM (1.4-6.5); ABSOLUTE LYMPH COUNT 1.4 /CUMM (1.2-3.4); ABSOLUTE MONOCYTE COUNT 0.5 /CUMM (0.10-0.60); BASOPHIL % 0.3 % (0.0-2.0); EOSINOPHIL % 5.2 % (0-5); GRANULOCYTE % 74.1 % (42.2-75.2); HEMATOCRIT 30.2 % (42-52); MEAN CORPUSCULAR VOLUME 91.2 FL (80.0-94.0); MEAN PLATELET VOLUME 8.8 FL (7.4-10.4); PLATELET COUNT 179 /CUMM (130-400); RBC DISTRIBUTION WIDTH 13.2 % (11.5-14.5); RED BLOOD CELL CT 3.32 /CUMM (4.70-6.10); WHITE BLOOD CELL COUNT 8.9 /CUMM (4.8-10.8)
[2018-04-22 14:58] VITALS: BP 132/60
[2018-04-22 21:08] VITALS: BP 118/60
[2018-04-23 07:12] VITALS: BP 108/64
--- NOTE | 2018-04-23 09:55 | PN- Housestaff ---
See Addendum Subjective Follow-up For: Gross Hematuria, UTI Subjective: Patient's Hernandez was discontinued yesterday. Per night float, patient has had postvoid residuals of greater than 1500, greater than 900, greater than 1000, requiring more than 3 instances of straight catheterizations. Patient states that he does not necessarily feel in need to go, states that he has not been drinking any more water than normal, states that there is no blood in the urine. Denies any current urinary symptoms. Denies abdominal distention. Denies fevers/chills/night sweats/chest pain/abdominal pain/lower extremity edema Review of Systems Constitutional: Reports: see HPI. Objective Last 24 Hrs of Vital Signs/I&O Vital Signs Date Time Temp Pulse Resp B/P B/P Pulse O2 O2 Flow FiO2 Mean Ox Delivery Rate 04/23 0712 98.6 79 20 108/64 97 04/22 2108 98.6 94 20 118/60 96 Room Air 04/22 1458 97.8 74 20 132/60 98 Room Air Intake & Output 04/23 1600 04/23 0800 04/23 0000 Intake Total 120 60 Output Total 1200 975 Balance -1080 -915 Intake, Oral 120 60 Output, Urine 1200 975 Physical Exam General Appearance: Alert, Oriented X3, Cooperative, No Acute Distress Skin: No Rashes Cardiovascular: Regular Rate, Normal S1, Normal S2 Lungs: Clear to Auscultation, Normal Air Movement Abdomen: Soft, No Tenderness, no suprapubic tenderness; no cva tenderness Neurological: Normal Speech, Strength at 5/5 X4 Ext Extremities: No Edema Reproductive (MALE) Normal male genitalia Current Medications: Current Medications Sig/Raúl Start time Last Medication Dose Route Stop Time Status Admin Acetaminophen 650 MG Q6P PRN 04/20 1030 AC PO Ceftriaxone Sodium 1,000 MG 1600 04/20 1600 AC 04/22 IV 1600 Ondansetron HCl 4 MG Q6P PRN 04/20 1900 AC 04/20 IV 1904 Oxycodone HCl 5 MG Q6P PRN 04/20 1045 AC PO Assessment/Plan Assessment: This is a 67M with poor medical follow-up who does not a medical history, 50+ pack year smoking history, presents with a one week history of dysuria, abdominal discomfort, and five hours of hematuria, admitted for gross hematuria and UTI Problem List 1. Gross Hematuria 2. Large post-void residual mismatched with patient intake 2. Post-renal CARIN (creatinine 2.0) 3. UTI with Dysuria 4. Leukocytosis 5. HTN 6. Poor Medical Follow-up 7. Self Pay #Gross Hematuria - resolved -Serial CBC - Hb from 12.5 --> 10.5-->10.3 today. Per operative note there was 1.5U worth of clot washed out on cystoscopy. -Discontinue CBI -Urology consult appreciated- went to OR on 04/20 for Cysto. Per note, no tumor identified. Ureters were unable to be visualized 2/ inflamm, no stenting done. Will likely have to f/u outpt for management of bilateral UPJ obstruction. Per reccs, CBI to be d/gloria, and hernandez catheter removed as urine is clear. Will have PVR by bladder scan q4 and str cath if >500cc. Potentially discharge with self intermittent cath regimen. #Large post-void residual mismatched with patient intake -Per night float and day team yesterday, patient has had 3-4 instances of straight cath yesterday, with PVR per bladder scan >1500; >900; >800. Pt does not have urge to go and does not feel bladder distension. -Urine lytes and serum osmolality ordered, will f/u results -Will d/w attending. Potentially follow up w/ urology #Post-renal CARIN - resolving -Creatinine at 1.7 yesterday. Down from admission which was 2.0 -IVF -Encourage Hydration #UTI with Dysuria - resolving -Ceftriaxone, day 4. Leukocytosis resolved. Micro growing >100,000 coag negative staph; sensitive to all. Will require 10 day course of abx for complicated UTI. #Leukocytosis - RESOLVED -12.7-->11.3-->9.0 today. #HTN - controlled -No LENNOX/ARB, will consider Amlodipine or Doxazosin if continues to be hypertensive. #Poor Medical Follow Up -Will establish a PCP for patient that is closer to patients house if patient is willing. Spoke with patient today, who is not averse to this. Referral sent for Dr. Estevez #Self Pay -Will consult with case management about possible HUSKY -Per patient family, members of family are in the midst of filling out paperwork Problem List: 1. UTI (urinary tract infection) 2. CARIN (acute kidney injury) Pain Ratin Pain Location: na Pain Goal: Pain 4 or less Pain Plan: pathway Tomorrow's Labs & Rationales: na
[2018-04-23 14:39] VITALS: BP 136/72
--- NOTE | 2018-04-23 14:56 | PN- Urology ---
Subjective Subjective: Patient feels comfortable today. Herron catheter was removed yesterday, and he has been voiding somewhat since then. Voiding with a slow stream, and poor bladder emptying. His postvoid residuals generally been greater than 500 mL. Patient feels comfortable in between catheterizations. Objective Vital Signs and I&Os Vital Signs Date Time Temp Pulse Resp B/P B/P Pulse O2 O2 Flow FiO2 Mean Ox Delivery Rate 04/23 1439 98.7 73 20 136/72 100 Room Air 04/23 0712 98.6 79 20 108/64 97 04/22 2108 98.6 94 20 118/60 96 Room Air 04/22 1458 97.8 74 20 132/60 98 Room Air Intake & Output 04/23 1600 04/23 0800 04/23 0000 04/22 1600 04/22 0800 04/22 0000 Intake Total 120 60 740 360 780 Output Total 0750 790 8342 1300 1500 Balance -1080 -915 -1560 -940 -720 Intake, IV 300 Intake, Oral 120 60 740 360 480 Number 1 Bowel Movements Output, Urine 2567 432 2557 1300 1500 Patient 152 lb Weight Physical Exam: Abdomen- soft, nontender. Bladder is not distended. Assessment/Plan Assessment/Plan Chronic retention-with continued elevated PVR. Patient is doing well on intermittent catheterization, and we'll begin teaching perform self- catheterization. Creatinine is stable, urine output remains good. Problem List: 1. Obstructive uropathy 2. UTI (urinary tract infection) 3. CARIN (acute kidney injury) 4. Hematuria Attending MD Review Statement Attending Statement Attending MD Statement: examined this patient
[2018-04-23 22:22] VITALS: BP 111/69
[2018-04-24 06:07] VITALS: BP 123/69
--- NOTE | 2018-04-24 07:23 | PN- Housestaff ---
See Addendum Subjective Follow-up For: Gross hematuria, UTI Subjective: Patient seen and examined at bedside. Pt denies complaints. States that he still has no urge to go, does not feel distended, but would like to go home on a Hernandez instead of straight catheterization. Denies fevers/chills/night sweats/ chest pain/abdominal pain/urinary symptoms/lower extremity edema Review of Systems Constitutional: Reports: see HPI. Objective Last 24 Hrs of Vital Signs/I&O Vital Signs Date Time Temp Pulse Resp B/P B/P Pulse O2 O2 Flow FiO2 Mean Ox Delivery Rate 04/24 0607 98.2 77 18 123/69 98 04/23 2222 97.9 84 18 111/69 98 04/23 1439 98.7 73 20 136/72 100 Room Air Intake & Output 04/24 1600 04/24 0800 04/24 0000 Intake Total 310 240 Output Total 700 700 Balance -390 -460 Intake, IV 10 Intake, Oral 300 240 Output, Urine 700 700 Physical Exam General Appearance: Alert, Oriented X3, Cooperative, No Acute Distress Skin: No Rashes Skin Temp/Moisture Exam: Warm/Dry HEENT: Mucous Membr. moist/pink, poor dentition Cardiovascular: Regular Rate, Normal S1, Normal S2 Lungs: Clear to Auscultation, Normal Air Movement Abdomen: Soft, No Tenderness Neurological: Strength at 5/5 X4 Ext Extremities: No Edema Current Medications: Current Medications Sig/Raúl Start time Last Medication Dose Route Stop Time Status Admin Acetaminophen 650 MG Q6P PRN 04/20 1030 AC PO Ceftriaxone Sodium 1,000 MG 1600 04/20 1600 DC 04/23 IV 1600 Ondansetron HCl 4 MG Q6P PRN 04/20 1900 AC 04/20 IV 1904 Oxycodone HCl 5 MG Q6P PRN 04/20 1045 AC PO Trimethoprim/ 1 TAB BID 04/23 1130 AC 04/24 Sulfamethoxazole PO 0830 Last 24 Hrs of Lab/Jimy Results Last 24 Hrs of Labs/Mics: Laboratory Tests 04/24/18 0839: CBC w Diff NO MAN DIFF REQ, RBC 3.48 L, MCV 90.7, MCH 30.9, MCHC 34.1, RDW 13.1 , MPV 8.2, Gran % 68.6, Lymphocytes % 18.7 L, Monocytes % 6.9, Eosinophils % 5.2 H, Basophils % 0.6, Absolute Granulocytes 5.8, Absolute Lymphocytes 1.6, Absolute Monocytes 0.6, Absolute Eosinophils 0.4, Absolute Basophils 0 04/24/18 0710: Anion Gap 9, Estimated GFR 36 L, BUN/Creatinine Ratio 16.3 04/23/18 1428: Urine Osmolality 354, Ur Random Creatinine 48.0, Ur Random Sodium 72, Ur Random Potassium 24.6, Fraction Sodium Excret 1.9 H Assessment/Plan Assessment: This is a 67M with poor medical follow-up who does not a medical history, 50+ pack year smoking history, presents with a one week history of dysuria, abdominal discomfort, and five hours of hematuria, admitted for gross hematuria and UTI Problem List 1. Gross Hematuria 2. Large post-void residual mismatched with patient intake 2. Post-renal CARIN (creatinine 2.0) 3. UTI with Dysuria 4. Leukocytosis 5. HTN 6. Poor Medical Follow-up 7. Self Pay #Gross Hematuria - resolved -Serial CBC - Hb from 12.5 --> 10.5-->10.3-->10.7 today. Per operative note there was 1.5U worth of clot washed out on cystoscopy. -Discontinue CBI -Urology consult appreciated- went to OR on 04/20 for Cysto. Per note, no tumor identified. Ureters were unable to be visualized 2/2 inflamm, no stenting done. Will likely have to f/u outpt for management of bilateral UPJ obstruction. Per reccs, CBI to be d/gloria, and hernandez catheter removed as urine is clear. Will have PVR by bladder scan q4 and str cath if >500cc. Potentially discharge with self intermittent cath regimen per urology, however patient states that he does not want to do that at home. Will likely go home on Hernandez catheter, to be switched at outpatient urology follow-up #Large post-void residual mismatched with patient intake -Per night float and day team yesterday, patient has had 3-4 instances of straight cath yesterday, with PVR per bladder scan >1500; >900; >800. Pt does not have urge to go and does not feel bladder distension. -Urine lytes and serum osmolality ordered, will f/u results -Will d/w attending. Potentially follow up w/ urology #Post-renal CARIN - resolving -Creatinine at 1.9 today. Down from admission which was 2.0. Likely patient's baseline per urology -IVF -Encourage Hydration #UTI with Dysuria - resolving -Total of 6 days of antibiotics so far. 5 days of ceftriaxone which was DC'd yesterday, received Bactrim yesterday, now on Keflex today. Leukocytosis resolved. Micro growing >100,000 coag negative staph; sensitive to all. Will require 10 day course of abx for complicated UTI. #Leukocytosis - RESOLVED -12.7-->11.3-->9.0-->8.9-->8.5 today. #HTN - controlled -No LENNOX/ARB, will consider Amlodipine or Doxazosin if continues to be hypertensive. #Poor Medical Follow Up -Will establish a PCP for patient that is closer to patients house if patient is willing. Spoke with patient today, who is not averse to this. Referral sent for Dr. Estevez #Self Pay -Will consult with case management about possible HUSKY -Per patient family, members of family are in the midst of filling out paperwork DVT prophylaxis IV access DNR/DNI Tolerating regular diet Dispositionto home, likely today, with home health services Problem List: 1. UTI (urinary tract infection) 2. CARIN (acute kidney injury) Pain Ratin Pain Location: na Pain Goal: Pain 4 or less Pain Plan: per pathway Tomorrow's Labs & Rationales: na Discharge Plan Stable for Discharge? Yes Anticipated Discharge (Day): today
--- NOTE | 2018-04-24 07:33 | PN- Urology ---
Subjective Subjective: Looks and feels better Objective Vital Signs and I&Os Vital Signs Date Time Temp Pulse Resp B/P B/P Pulse O2 O2 Flow FiO2 Mean Ox Delivery Rate 04/24 0607 98.2 77 18 123/69 98 04/23 2222 97.9 84 18 111/69 98 04/23 1439 98.7 73 20 136/72 100 Room Air Intake & Output 04/24 0800 04/24 0000 04/23 1600 04/23 0800 04/23 0000 04/22 1600 Intake Total 310 240 740 120 60 740 Output Total 049 976 2580 7161 126 7286 Balance -390 -460 -560 -1080 -915 -1560 Intake, IV 10 Intake, Oral 300 240 740 120 60 740 Number 1 1 Bowel Movements Output, Urine 891 800 6202 4004 559 1333 Patient on intermittent cath. Has no sensation of bladder fullness indicating poor bladder tone due to overdistention injury to bladder Laboratory Tests 04/24 04/23 04/23 0710 1428 0953 Chemistry Sodium (137 - 145 mmol/L) Pending 142 Potassium (3.5 - 5.1 mmol/L) Pending 4.5 Chloride (98 - 107 mmol/L) Pending 106 Carbon Dioxide (22 - 30 mmol/L) Pending 24 Anion Gap (5 - 16) Pending 11 BUN (9 - 20 mg/dL) Pending 30 H Creatinine (0.7 - 1.2 mg/dL) Pending 1.8 H Estimated GFR (>60 ml/min) 38 L BUN/Creatinine Ratio (7 - 25 %) Pending 16.7 Serum Osmolality (285 - 295 MOSM/KG) 295 Urines Urine Osmolality (300 - 1000 MOSM/KG) 354 Ur Random Creatinine (mg/dL) 48.0 Ur Random Sodium (30 - 90 mmol/L) 72 Ur Random Potassium (mmol/L) 24.6 Fraction Sodium Excret (<1% %) 1.9 H Assessment/Plan Assessment/Plan Imp: 1. Gross hematuria resolved. Was likely due to bacterial cystitis 2. UTI with coag neg staph 3. 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 Creat likely now at baseline 4. Urinary retention. 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 Could likely transition to po abx 2. Optimal bladder drainage at this time is self intermittent cath, 3-4 times per day. Would have nurses attempt to teach patient self cath and discharge home on self cath 3-4 times per day. Should aim for not more than 600 cc per cath. If more than that then needs to cath more often. If unable to learn self cath here then home with hernandez and will attempt to teach self cath in office. assisted hernandez is poor option for bladder drainage in his case
[2018-04-24] MEDS ORDERED: SULFAMETHOXAZO1 EAC1 PO (07:58)
[2018-04-24 08:52] LABS: ABSOLUTE BASOPHIL COUNT 0 /CUMM (0.0-0.2); ABSOLUTE EOSINOPHIL COUNT 0.4 /CUMM (0.0-0.7); ABSOLUTE GRANULOCYTE CT 5.8 /CUMM (1.4-6.5); ABSOLUTE LYMPH COUNT 1.6 /CUMM (1.2-3.4); ABSOLUTE MONOCYTE COUNT 0.6 /CUMM (0.10-0.60); BASOPHIL % 0.6 % (0.0-2.0); EOSINOPHIL % 5.2 % (0-5); GRANULOCYTE % 68.6 % (42.2-75.2); HEMATOCRIT 31.5 % (42-52); MEAN CORPUSCULAR HGB 30.9 PG (27.0-31.0); MEAN CORPUSCULAR HGB CONC 34.1 G/DL (33.0-37.0); MEAN CORPUSCULAR VOLUME 90.7 FL (80.0-94.0); MEAN PLATELET VOLUME 8.2 FL (7.4-10.4); PLATELET COUNT 249 /CUMM (130-400); RBC DISTRIBUTION WIDTH 13.1 % (11.5-14.5); RED BLOOD CELL CT 3.48 /CUMM (4.70-6.10); WHITE BLOOD CELL COUNT 8.5 /CUMM (4.8-10.8)
[2018-04-24] MEDS ORDERED: KEFLEX750 M1 PO ×2 (09:23→14:29)
== END 2018-04-24 14:18 | DRG 469 ==
LOC: ERH 12:34 → ERHI 15:57 → 2NB 15:57 → ENRESERV 16:54 → ENTRNSPT 18:14 → EDTRNSPTSTS 18:34 → EDTRNSPT 18:34 → 2NB 18:37 → CMPTRNSPT 18:46 → 2NB 04-20 07:24 → ENTRNSPT 04-20 10:36 → EDTRNSPTSTS 04-20 10:46 → CMPTRNSPT 04-20 11:08 → ENPENDDIS 04-24 10:40 → 2NB 04-24 14:18
PROVIDERS: General Practice; Physician Assistant; Urology
PROC: 0TCB8ZZ Extirpation of Matter from Bladder, Via Natural or Artificial Opening Endoscopic (ICD-10-PCS; principal; 2018-04-20)
PROC: 0T7 Urinary System, Dilation (ICD-10-PCS; 2018-04-20)
DX: N17.9 Acute kidney failure, unspecified (principal); N13.6 Pyonephrosis; R31.0 Gross hematuria; I10 Essential (primary) hypertension; F17.210 Nicotine dependence, cigarettes, uncomplicated; D62 Acute posthemorrhagic anemia; Z66 Do not resuscitate; Z88.7 Allergy status to serum and vaccine; B95.7 Other staphylococcus as the cause of diseases classified elsewhere; N31.2 Flaccid neuropathic bladder, not elsewhere classified; N39.498 Other specified urinary incontinence; N32.81 Overactive bladder; N21.0 Calculus in bladder
CPT/HCPCS: 2NBSP; 84133; 84300; 36415; 36592; 74176; 81001; 82436; 82570; 87086; 87147; 93005; 93010; 99291; J0696; J2405; J3490; J7042